=== PATIENT | female | born 1965 | race African-American/Black ===

== ENCOUNTER → 2016-09-14 | Day surgery (SDC) | payer BC ==
[~2016-09-14] MED LIST: ASPI-482 PO; ATOR10TA60 PO; CARV12.5 PO; FENTANYL PF 100 MCG/2 ML VIAL. IV PRN; HYDR12.53 PO; HYDROMORPHONE 2 MG/ML VIAL. IV PRN; IV RINGERS,LACTATED 1000ML 1,000 ML IV SCH; LIDOCAINE 1% 1 ML SYRINGE. ID PRN; LIDOCAINE 2% PF Vial for OR 5 ML VIAL. ONE; MORPHINE SULFATE 2 MG/ML DISP.SYRIN. IV PRN; NAPR500T3 PO; OMEP40CA5 PO; ONDANSETRON PF 4 MG/2 ML VIAL. IV PRN; POTA10CA PO; PROCHLORPERAZINE 10 MG/2 ML VIAL. IV PRN; PROPOFOL 20 ML IV ONE
[2016-09-14 08:23] VITALS: BP 199/115
--- NOTE | 2016-09-15 13:38 | PATHOLOGY ---
PATHOLOGY REPORT * * * * * * * * FINAL DIAGNOSIS: Esophagus, distal, biopsy: - Hyperplastic squamous epithelium with focal mild chronic inflammation. - No columnar epithelium present. (SKM:melissa; d/t: 09/15/2016) REPORT ELECTRONICALLY SIGNED BY: Iker Templeton M.D. DATE/TIME: 09/15/2016 13:37 * * * * * * * * GROSS PATHOLOGY: Received in formalin labeled "Ashley Reynoso and esophageal biopsies, distal," are 6 segments of soto soft tissue measuring 1.8 x 0.5 x 0.2 cm in aggregate dimensions and ranging from 0.2 to 0.7 cm in maximum dimension. The specimen is submitted entirely in cassette A1. (TTL; 09/14/2016) INITIAL CPT CODE(S): A; 87458 Professional services performed by [facility] [place] [address] Technical services performed by [facility] at [address] [place] [address]. SPECIMEN(S) RECEIVED: A.Distal esophagus biopsy CLINICAL HISTORY: Heartburn PATIENT: ASHLEY REYNOSO Bridger /AGE: 3 1965 (Age: 51) PATIENT #: [id number] ALT CASE #: SPECIMEN COLLECTION DATE: 09/14/2016 SPECIMEN RECEIVED DATE: 09/14/2016 [facility] - [address] [place] [address] - PHONE: [phone] * * * END OF REPORT * * *
== END | disposition home or self-care (01) ==
LOC: ENDOS 06:28
PROVIDERS: ATTEND Internal Medicine Gastroenterology
DX: K21.0 Gastro-esophageal reflux disease with esophagitis (principal); K29.50 Unspecified chronic gastritis without bleeding; E78.00 Pure hypercholesterolemia, unspecified; E66.9 Obesity, unspecified; I10 Essential (primary) hypertension; Z90.49 Acquired absence of other specified parts of digestive tract; Z90.710 Acquired absence of both cervix and uterus; Z87.440 Personal history of urinary (tract) infections; Z82.3 Family history of stroke
CPT/HCPCS: 43239; 88305; J2704

== ENCOUNTER → 2016-10-03 | Outpatient (CLI) | payer BC ==
[2016-09-14 08:23] VITALS: BP 199/115
[~2016-10-03] MED LIST changes: -FENTANYL PF 100 MCG/2 ML VIAL. IV PRN; -HYDROMORPHONE 2 MG/ML VIAL. IV PRN; -IV RINGERS,LACTATED 1000ML 1,000 ML IV SCH; -LIDOCAINE 1% 1 ML SYRINGE. ID PRN; -LIDOCAINE 2% PF Vial for OR 5 ML VIAL. ONE; -MORPHINE SULFATE 2 MG/ML DISP.SYRIN. IV PRN; -ONDANSETRON PF 4 MG/2 ML VIAL. IV PRN; -PROCHLORPERAZINE 10 MG/2 ML VIAL. IV PRN; -PROPOFOL 20 ML IV ONE
--- NOTE | 2016-10-03 11:16 | RAD ---
Radionuclide gastric emptying study, 10/03/2016: History: Epigastric pain and nausea The study was performed utilizing a solid test meal radiolabeled with 2.2 mCi of technetium 99m sulfur colloid. The time to half emptying of the test Medial from the patient's stomach was estimated at 66 minutes. A normal T1/2 is 60 minutes +/- 30 minutes. IMPRESSION: Normal gastric emptying time.
== END | disposition home or self-care (01) ==
LOC: NM 08:00
PROVIDERS: ATTEND Internal Medicine Gastroenterology
DX: R10.13 Epigastric pain (principal); R11.0 Nausea
CPT/HCPCS: 78264; A9541

== ENCOUNTER 2019-04-26 18:46 | Emergency (ER) | payer BC, OTHER ==
[~2019-04-26] VITALS: Ht 162.6 cm; Wt 92.5 kg
[~2019-04-26 18:46] MED LIST changes: -HYDR12.53 PO; +HYDR12.575 PO; +NAPR-514 PO; -NAPR500T3 PO; +OMEP40CA45 PO; -OMEP40CA5 PO; -POTA10CA PO; +POTA10TA12 PO
--- NOTE | 2019-04-26 19:08 | PHYS DOC ---
Past Medical History Past Medical History: Hypertension, TIA Additional Past Medical Histor: palpitations, Past Surgical History: Cholecystectomy, Hysterectomy Alcohol Use: None Drug Use: None Adult General Chief Complaint Chief Complaint: UPPER EXTREMITY PAIN [facility] 53-year-old female presents to emergency Department complaints of left arm pain. Patient states she woke this morning with pain. Denies any injury. She was seen at urgent care today with referral emergency department. Patient has a history of DVT as well as history of atrial fibrillation. She is on no chronic anticoagulation according to her medication record inpatient. Patient denies any numbness or tingling. She states is painful to move. She denies any pain on palpation. Patient denies any chest pain, shortness breath, nausea, vomiting, headache, visual change, abdominal pain. Movements make her pain worse. Review of Systems Review of Systems Constitutional: Denies fever or chills [] Eyes: Denies change in visual acuity, redness, or eye pain [] Respiratory: Denies cough or shortness of breath [] Cardiovascular: No additional information not addressed in HPI [] GI: Denies abdominal pain, nausea, vomiting, bloody stools or diarrhea [] : Denies dysuria or hematuria [] Musculoskeletal: left upper ext pain Integument: Denies rash or skin lesions [] Neurologic: Denies headache, focal weakness or sensory changes [] All other systems were reviewed and found to be within normal limits, except as documented in this note. Allergies Allergies Allergies Coded Allergies Type Severity Reaction Last Updated Verified lisinopril Allergy Severe ANGIOEDEMA 09/14/16 Yes tetracycline Allergy Intermediate 09/14/16 Yes Physical Exam Physical Exam Constitutional: Well developed, well nourished, no acute distress, non-toxic appearance. [] HENT: Normocephalic, atraumatic, bilateral external ears normal, oropharynx moist, no oral exudates, nose normal. [] Eyes: PERRLA, EOMI, conjunctiva normal, no discharge. [] Cardiovascular:Heart rate regular rhythm, no murmur [] Lungs & Thorax: Bilateral breath sounds clear to auscultation [] Abdomen: Bowel sounds normal, soft, no tenderness, no masses, no pulsatile masses. [] Skin: Warm, dry, no erythema, no rash. [] Back: No tenderness, no CVA tenderness. [] Extremities: No tenderness, no edema. [] Neurologic: Alert and oriented X 3, no focal deficits noted. [] Psychologic: Affect normal, judgement normal, mood normal. [] Current Patient Data Vital Signs Vital Signs Date Time Temp Pulse Resp B/P (MAP) Pulse Ox O2 Delivery O2 Flow Rate FiO2 04/26/19 19:00 99.0 84 18 185/88 (120) 100 Room Air 99.0 Lab Values Laboratory Tests Test 04/26/19 19:20 04/26/19 19:54 White Blood Count 5.9 x10^3/uL (4.0-11.0) Red Blood Count 4.12 x10^6/uL (3.50-5.40) Hemoglobin 13.5 g/dL (12.0-15.5) Hematocrit 38.8 % (36.0-47.0) Mean Corpuscular Volume 94 fL (79-100) Mean Corpuscular Hemoglobin 33 pg (25-35) Mean Corpuscular Hemoglobin Concent 35 g/dL (31-37) Red Cell Distribution Width 13.1 % (11.5-14.5) Platelet Count 239 x10^3/uL (140-400) Neutrophils (%) (Auto) 74 % (31-73) H Lymphocytes (%) (Auto) 15 % (24-48) L Monocytes (%) (Auto) 9 % (0-9) Eosinophils (%) (Auto) 1 % (0-3) Basophils (%) (Auto) 1 % (0-3) Neutrophils # (Auto) 4.4 x10^3/uL (1.8-7.7) Lymphocytes # (Auto) 0.9 x10^3/uL (1.0-4.8) L Monocytes # (Auto) 0.5 x10^3/uL (0.0-1.1) Eosinophils # (Auto) 0.1 x10^3/uL (0.0-0.7) Basophils # (Auto) 0.0 x10^3/uL (0.0-0.2) D-Dimer (Precious) 0.36 ug/mlFEU (0.00-0.50) Sodium Level 141 mmol/L (136-145) Potassium Level 3.7 mmol/L (3.5-5.1) Chloride Level 106 mmol/L (98-107) Carbon Dioxide Level 30 mmol/L (21-32) Anion Gap 5 (6-14) L Blood Urea Nitrogen 13 mg/dL (7-20) Creatinine 1.1 mg/dL (0.6-1.0) H Estimated GFR (Cockcroft-Gault) 62.6 BUN/Creatinine Ratio 12 (6-20) Glucose Level 110 mg/dL (70-99) H Calcium Level 9.0 mg/dL (8.5-10.1) Total Bilirubin 0.4 mg/dL (0.2-1.0) Aspartate Amino Transferase (AST) 20 U/L (15-37) Alanine Aminotransferase (ALT) 13 U/L (14-59) L Alkaline Phosphatase 95 U/L (46-116) Creatine Kinase 121 U/L (26-192) Total Protein 7.3 g/dL (6.4-8.2) Albumin 3.3 g/dL (3.4-5.0) L Albumin/Globulin Ratio 0.8 (1.0-1.7) L Laboratory Tests 04/26/19 19:20 Laboratory Tests 04/26/19 19:54 EKG EKG []EKG reviewed, normal sinus rhythm, normal axis, no evidence of acute ST elevation CA appreciated, nonurgent EKG interpretation 191 Radiology/Procedures Radiology/Procedures [facility] [address] [place], [place] [id number] IMAGING REPORT Signed PATIENT: MADISON SOMMER ACCOUNT: [id number] : 1965 LOCATION: ER AGE: 53 SEX: F EXAM STATUS: PRE ER ORD. PHYSICIAN: EDGARDO BURRIS MD REASON: pain with movement, limited 2/2 pain PROCEDURE: HUMERUS LEFT Two-view left humerus dated 04/26/2019. No comparison available. Clinical data indication: Pain. FINDINGS: 2 views left humerus show normal bony alignment. No displaced fracture. No periostitis or bone destruction. Mild degenerative change at the AC joint. IMPRESSION: No acute radiographic abnormality. Electronically signed by: Jeff Epperson MD (04/26/2019 7:40 PM) [facility] DICTATED and SIGNED BY: JEFF EPPERSON MD DATE: 04/26/191939 [] Course & Med Decision Making Course & Med Decision Making Pertinent Labs and Imaging studies reviewed. (See chart for details) [] 53-year-old female presents to emergency Department complaints of left arm pain. Patient states she woke this morning with pain. Denies any injury. She was seen at urgent care today with referral emergency department. Patient has a history of DVT as well as history of atrial fibrillation. She is on no chronic anticoagulation according to her medication record inpatient. Patient denies any numbness or tingling. She states is painful to move. She denies any pain on palpation. Patient denies any chest pain, shortness breath, nausea, vomiting, headache, visual change, abdominal pain. Movements make her pain worse. Was reviewed, d-dimer within normal limits 0.36. Imaging review without evidence of acute bony injury. CPK within normal limits. No acute findings to explain patient's pain in her left arm would recommend follow-up with her primary care physician consider referral for orthopedic surgery. Consider MRI. We'll provide by mouth pain medications upon discharge for 3-5 days again recommend further follow-up with patient's primary care physician. Dragon Disclaimer Dragon Disclaimer This electronic medical record was generated, in whole or in part, using a voice recognition dictation system. Departure Departure Impression: Primary Impression: Left arm pain Disposition: 01 HOME, SELF-CARE Condition: STABLE Referrals: JEFF BETH MD (PCP) Patient Instructions: Musculoskeletal Pain Additional Instructions: Recommend follow up with PCP 3 - 5 days Return to the ER with worsening symptoms, intractable pain, fever, altered mental status Tylenol/Motrin as needed for pain Scripts Tramadol Hcl (TRAMADOL HCL) 50 Mg Tablet 50 MG PO Q6-8HRS PRN for PAIN for 3 Days, TAB 0 Refills Prov: EDGARDO BURRIS MD 04/26/19 EDGARDO BURRIS MD Apr 26, 2019 19:08
[2019-04-26 19:31] LABS: BASO % 1 % (0-3); EOS # 0.1 x10^3/uL (0.0-0.7); EOS % 1 % (0-3); HEMATOCRIT 38.8 % (36.0-47.0); HEMOGLOBIN 13.5 g/dL (12.0-15.5); LYMPH # 0.9 x10^3/uL (1.0-4.8); LYMPH % 15 % (24-48); MEAN CORPUSCULAR HEMOGLOBIN 33 pg (25-35); MEAN CORPUSCULAR HGB CONC 35 g/dL (31-37); MEAN CORPUSCULAR VOLUME 94 fL (79-100); MONO # 0.5 x10^3/uL (0.0-1.1); MONO % 9 % (0-9); NEUT # 4.4 x10^3/uL (1.8-7.7); NEUT % 74 % (31-73); PLATELET COUNT 239 x10^3/uL (140-400); RED BLOOD COUNT 4.12 x10^6/uL (3.50-5.40); RED CELL DISTRIBUTION WIDTH 13.1 % (11.5-14.5); WHITE BLOOD COUNT 5.9 x10^3/uL (4.0-11.0)
--- NOTE | 2019-04-26 19:43 | RAD ---
Two-view left humerus dated 04/26/2019. No comparison available. Clinical data indication: Pain. FINDINGS: 2 views left humerus show normal bony alignment. No displaced fracture. No periostitis or bone destruction. Mild degenerative change at the AC joint. IMPRESSION: No acute radiographic abnormality. Electronically signed by: Jeff Prasad MD (04/26/2019 7:40 PM) [facility]
[2019-04-26 20:08] LABS: CREATININE 1.1 mg/dL (0.6-1.0); GFR 62.6; POTASSIUM 3.7 mmol/L (3.5-5.1)
[2019-04-26 20:15] LABS: ALBUMIN 3.3 g/dL (3.4-5.0); ALBUMIN/GLOBULIN RATIO 0.8 (1.0-1.7); TOTAL BILIRUBIN 0.4 mg/dL (0.2-1.0); TOTAL PROTEIN 7.3 g/dL (6.4-8.2)
[2019-04-26 21:00] VITALS: BP 149/53
[2019-04-26] MEDS ORDERED: TRAM50TA PO (21:25)
--- NOTE | 2019-04-27 10:13 | EKG ---
[facility] [address] [place] [address] Test Date: 2019-04-26 Test Time: 19:10:48 Pat Name: MADISON SOMMER Department: Room: Gender: F Physics Instructor: : 1965 Requested By: EDGARDO BURRIS Order Number: [id number] Reading MD: Measurements Intervals [place] Rate: 78 P: 44 ME: 148 QRS: 41 QRSD: 88 T: 50 QT: 364 QTc: 418 Interpretive Statements SINUS RHYTHM NON SPECIFIC ST-T ABNORMALITY (ELEVATION) OTHERWISE NORMAL ECG No previous ECG available for comparison
== END 2019-04-26 21:35 | disposition home or self-care (01) ==
LOC: ER 18:46
DX: M79.602 Pain in left arm (principal); I10 Essential (primary) hypertension; Z86.73 Personal history of transient ischemic attack (TIA), and cerebral infarction without residual deficits; Z88.1 Allergy status to other antibiotic agents; Z88.8 Allergy status to other drugs, medicaments and biological substances
CPT/HCPCS: 36415; 73060; 80053; 82550; 85025; 85379; 93005; 99285-25

== ENCOUNTER → 2019-05-10 | Outpatient (CLI) | payer OTHER ==
[2019-04-26 21:00] VITALS: BP 149/53
[~2019-05-10] MED LIST changes: +TRAM50TA PO
--- NOTE | 2019-05-10 09:24 | KCIC ---
Bilateral digital screening mammograms: Reason for examination: Routine baseline screening. Interpretation is made with the benefit of CAD. The skin and nipples show no abnormalities. No abnormal lymph nodes are seen. The breast parenchyma is predominantly fatty. (Breast density: Category A.) There is a 1.6 cm nodular density at the 9:00 B position of the right breast approximately 11 cm posterior to the nipple. There are 2 small nodular densities in the lower inner quadrant of the right breast anteriorly measuring approximately 7.8 and 5.4 mm in size at the 5:00 position of the right breast 4.5 cm from the nipple. There is also a 9 mm nodular appearing density present in the left breast approximately 5 cm from the nipple at the 11:00 position. Impression: Small nodular densities seen bilaterally. Recommend further evaluation with ultrasound. BI-RADS Category 0: Incomplete. Needs additional imaging evaluation. "Our facility is accredited by the [employer] Mammography Program." This patient's information has been entered into a reminder system for the patient to be notified with the results of her examination and a target date for the next mammogram. Electronically signed by: Randee Quiñones MD (05/10/2019 9:21 AM) [id number]
== END | disposition home or self-care (01) ==
LOC: KCIC MAMMO 08:17
PROVIDERS: ATTEND Obstetrics & Gynecology
DX: Z12.31 Encounter for screening mammogram for malignant neoplasm of breast (principal)
CPT/HCPCS: 77067

== ENCOUNTER → 2019-05-13 | Outpatient (CLI) | payer OTHER ==
[2019-04-26 21:00] VITALS: BP 149/53
--- NOTE | 2019-05-17 14:39 | RAD ---
STUDY: Ultrasound breast-bilateral INDICATION: Follow-up of nodular density seen within both breasts on the 05/10/2019 screening mammogram. COMPARISON: No prior breast ultrasound is available for review. Correlation is made to 05/10/2019 mammogram. TECHNIQUE: Targeted diagnostic ultrasound of both the right and left breasts. FINDINGS: At the 10:00 position of the left breast approximately 6 cm from the nipple, an elongated hypoechoic mass is identified without vascularity and measuring approximately 0.6 x 0.8 x 0.2 cm. This corresponds with the mammographic abnormality by size and location and does not exhibit features concerning for malignancy. No additional abnormality seen throughout the evaluated left breast. Within the axilla, morphologically normal lymph nodes are seen. At the 4:00 location of the right breast 3 cm from the nipple, a hypoechoic and avascular mass is seen measuring 0.8 x 0.3 x 0.6 cm. At the 3:00 location 3 cm from the nipple, ovoid, well-circumscribed hypoechoic structure measuring 0.5 x 0.5 x 0.3 cm. These do not exhibit features concerning for malignancy. At the 9:00 position of the right breast approximately 11 cm from the nipple, no discrete mass is seen and during real-time sonography of this region an area of heterogeneous fibroglandular tissue was noted. Morphologically normal lymph nodes seen at the axilla. IMPRESSION: No sonographic abnormality within the right or left breast that is concerning for malignancy. BI-RADS Category 2: Benign. Recommendations: Routine screening mammography in one year.
== END | disposition home or self-care (01) ==
LOC: US 08:26
PROVIDERS: ATTEND Obstetrics & Gynecology
DX: N63.22 Unspecified lump in the left breast, upper inner quadrant (principal); N63.14 Unspecified lump in the right breast, lower inner quadrant
CPT/HCPCS: 76641